=== PATIENT | female | born 1965 | race Caucasian/White ===

== ENCOUNTER 2017-01-26 07:00 | Day surgery (SDC) | payer OTHER ==
[~2017-01-26] VITALS: Ht 172.7 cm; Wt 90.7 kg
--- NOTE | ~2017-01-26 | OR ---
[facility] [address] [place], [place] [address] Draft DATE OF OPERATION: 01/26/2017 SURGEON: Jeremiah Bowen MD PREOPERATIVE DIAGNOSIS: Dysphagia, foreign body sensation in the throat. POSTOPERATIVE DIAGNOSIS: Dysphagia, foreign body sensation in the throat. PROCEDURE: Direct laryngoscopy with biopsy, direct rigid esophagoscopy. ANESTHESIA: General orotracheal, Kayden BLACK. PREOPERATIVE HISTORY: Deonna is a 51-year-old lady with a several month history of right-sided throat discomfort, fullness, and dysphagia. Exam in the office has been negative other than some of sensation of fullness in the right pharyngeal area. She is taken to the operating room for the above-mentioned procedures. OPERATIVE PROCEDURE AND FINDINGS: After informed consent, the patient was taken to the operating room, placed in the supine position, where general orotracheal anesthesia was induced. The patient and procedure were verified. The patient was repositioned. Digital exam showed some nodularity of the right tonsil somewhat also on the left. No other palpable abnormalities in the oral cavity, base of tongue, etc. The Dedo laryngoscope was used to visualize the hypopharynx and larynx. There was a floppy fleshy mucosal lesion on the left vocal cord posteriorly. This was the only abnormality identified on laryngoscopy. This was biopsied with a small cup forceps, sent to pathology in formalin. Basically, the posterior half of the vocal cord mucosa was stripped, minimal bleeding. The long esophagoscope was then passed down to 40 cm from the incisor with no abnormalities identified. No biopsies were taken. The laryngoscope was then placed again for visualized elevation of the right tonsil. Some nodular area on the tonsil was biopsied with a cup forceps. Minimal bleeding in this area. The pharynx was then suctioned with suction clear blood secretions. Hemostasis was verified. The patient was awakened, extubated, and transported to recovery room in good condition. COMPLICATIONS: No complications. BLOOD LOSS: Minimal. PATIENT NAME: CHINMAYDEONNA OPERATIVE REPORT DATE OF : 67 PHYSICIAN: JEREMIAH BOWEN MD REPORT #: [id number] REPORT IS CONFIDENTIAL AND NOT TO BE RELEASED WITHOUT AUTHORIZATION [address] [place], [place] [address] Draft SPECIMEN: 1. Left vocal cord. 2. Right tonsil sent to pathology separately in formalin. DRAINS: No drains. Jeremiah Bowen MD GC/MODL /[id number] PATIENT NAME: MOYDEONNA OPERATIVE REPORT DATE OF : 67 PHYSICIAN: JEREMIAH BOWEN MD REPORT #: [id number] REPORT IS CONFIDENTIAL AND NOT TO BE RELEASED WITHOUT AUTHORIZATION
[~2017-01-26 07:00] MED LIST: ALBUTEROL2.5 MG/3 M INH; AMITIZA24 MCG PO; AUGMENTIN 875-1 EACH PO; BACLOFEN10 MG PO; CELECOXIB200 MG PO; CHANTIX1 MG PO; CLONAZEPAM1 MG PO; DIAZEPAM5 MG PO; DULOXETINE HCL60 MG PO; FOLIC ACID1 MG PO; GABAPENTIN100 MG PO; IBUPROFEN600 MG PO; LORAZEPAM1 MG PO; MELOXICAM15 MG PO; METHOTREXA25 MG/1 ML INJ; METHOTREXATE2.5 MG PO; NORCO 5-325 TA1 EACH PO; NUCYNTA50 MG PO; OMEPRAZOLE20 MG PO; ONDANSETRON HCL4 MG PO; OXYCODONE HCL5 MG PO; PREDNISONE10 MG PO; PREDNISONE20 MG PO; SPIRIVA18 MCG INH; TRAMADOL HCL50 MG PO; TRAZODONE HCL100 MG PO; TRAZODONE HCL50 MG PO; VENTOLIN HFA18 GM INH; [UNRECOGNIZED DRUG - REMARK] IM
--- NOTE | 2017-01-26 10:27 | NUR ---
PT RETURNED FROM PACU. PT TOLERATING PO FOOD AND FLUID. PT DENIES PAIN AND NAUSEA. FAMILY AT BEDSIDE. BED RAILS UP. WARM AIR ON. CALL LIGHT WITHIN REACH
--- NOTE | 2017-01-26 11:35 | NUR ---
PT AMBULATING WITHOUT ASSISTANCE. PT TOLERATING PO FOOD AND FLUID AND VODING WITHOUT ISSUE. PT DRESSES SELF. DISCHARGE INSTRUCTINOS REVIEWED WITH PT AND SISTER. PT AND SISTER VERBALIZE UNDERSTANDING OF INSTRUCTIONS.
--- NOTE | 2017-01-27 07:17 | NUR ---
PT IN RM WITH CAREGIVER, SEEMED TO BE WAITING FOR DR MCFARLANE. PT REQUESTED PRAYER, WILL FOLLW NEEDED
== END 2017-01-26 11:35 | disposition home or self-care (01) ==
LOC: OPS 07:00 → DS 07:00 → OPS 08:00 → DS 08:00 → OPS 11:35
PROVIDERS: Otolaryngology
PROC: 0DJ08ZZ Inspection of Upper Intestinal Tract, Via Natural or Artificial Opening Endoscopic (ICD-10-PCS; 2017-01-26)
PROC: 0CBM8ZX Excision of Pharynx, Via Natural or Artificial Opening Endoscopic, Diagnostic (ICD-10-PCS; principal; 2017-01-26 08:00)
PROC: 0CBV8ZX Excision of Left Vocal Cord, Via Natural or Artificial Opening Endoscopic, Diagnostic (ICD-10-PCS; 2017-01-26 08:00)
DX: J38.7 Other diseases of larynx (principal); J03.90 Acute tonsillitis, unspecified; J45.909 Unspecified asthma, uncomplicated; M06.9 Rheumatoid arthritis, unspecified; F41.9 Anxiety disorder, unspecified; F32.9 Major depressive disorder, single episode, unspecified; M79.7 Fibromyalgia; Z85.40 Personal history of malignant neoplasm of unspecified female genital organ; Z88.5 Allergy status to narcotic agent; Z88.4 Allergy status to anesthetic agent; Z79.899 Other long term (current) drug therapy; Z90.710 Acquired absence of both cervix and uterus; Z90.89 Acquired absence of other organs; Z90.49 Acquired absence of other specified parts of digestive tract; Z98.890 Other specified postprocedural states
CPT/HCPCS: 00320; J0330; J1100; J1885; J2250; J2405; J2704; J2765; J3010; J7120

== ENCOUNTER 2017-11-28 13:29 | Emergency (ER) | payer MEDICARE, OTHER ==
[~2017-11-28] VITALS: Ht 172.7 cm; Wt 90.7 kg
--- OUTSIDE RECORDS SUMMARY | ~2017-11-28 | XMS | Clinical Summary ---
Demographics + + + | Address | [address] | | | [place] [address] | + + + | Home Phone | | + + + | Preferred Language | Unknown | + + + | Marital Status | | + + + | Amish Affiliation | Unknown | + + + | Race | Unknown | + + + | Ethnic Group | Unknown | + + + Author + + + | Author | [facility] | | | and [place] | + + + | Organization | [facility] | | | and [place] | + + + | Address | Unknown | + + + | Phone | Unavailable | + + + Support + + +---------+ + | Name | Relationship | Address | Phone | + + +---------+ + | DEONNA MOY | ECON | Unknown | | + + +---------+ + Care Team Providers + +------+ + | Care Price Accuracy Supervisor Name | Role | Phone | + +------+ + PP | Unavailable | + +------+ + Allergies Not on File Current Medications Not on file Active Problems Not on file Social History + +-------+ +--------+------+ | Tobacco Use | Types | Packs/Day | Years | Date | | | | | Used | | + +-------+ +--------+------+ | Never Assessed | | | | | + +-------+ +--------+------+ + + + | Sex Assigned at | Date Recorded | | | | + + + | Not on file | | + + + Plan of Treatment + + + + + | Health Maintenance | Due Date | Last Done | Comments | + + + + + | Vaccine: | | | | | Dtap/Tdap/Td (1 - | 6 | | | | Tdap) | | | | + + + + + | Cervical Cancer | | | | | Screening (Pap) | 7 | | | + + + + + | Vaccine: Influenza | | | | | (#1) | 8 | | | + + + + + Results Not on filefrom Last 3 Months"
--- OUTSIDE RECORDS SUMMARY | ~2017-11-28 | XMS | Encounter Summary ---
Demographics + + + | Address | [address] | | | [place] [address] | + + + | Home Phone | | + + + | Preferred Language | Unknown | + + + | Marital Status | Single | + + + | Yarsani Affiliation | Unknown | + + + | Race | Unknown | + + + | Ethnic Group | Unknown | + + + Author + + + | Author | [facility] | + + + | Organization | [facility] | + + + | Address | Unknown | + + + | Phone | Unavailable | + + + Support + + +---------+ + | Name | Relationship | Address | Phone | + + +---------+ + | Sridevi Phelps | ECON | Unknown | | + + +---------+ + Care Team Providers + +------+ + | Care Design Consultant Name | Role | Phone | + +------+ + | Jaiden García MD | PCP | | + +------+ + Encounter Details +--------+ + + + + | Date | Type | Department | Care Team | Description | +--------+ + + + + | 11/02/ | Documentati | [facility] | Mitzi Griffin, | | | 2018 | on Only | [facility] | [address] | | | | | [address] | [place], [place] | | | | | [place], [place] | [address] | | | | | [address] | | | | | | [phone] | | | +--------+ + + + + Social History + +-------+ +--------+------+ | Tobacco [...] on file | | + + + as of this encounter Progress Notes Stefanie Zapata N - 11/02/2017 11:56 AM PDT[facility] Plan of Treatment Not on fileas of this encounter Visit Diagnoses Not on filein this encounter"
--- OUTSIDE RECORDS SUMMARY | ~2017-11-28 | XMS | Clinical Summary ---
Demographics + + + | Address | [address] | | | [place] [address] | + + + | Home Phone | | + + + | Preferred Language | Unknown | + + + | Marital Status | | + + + | Jew Affiliation | Unknown | + + + | Race | Unknown | + + + | Ethnic Group | Unknown | + + + Author + + + | Author | [facility] | | | and [place] | + + + | Organization | [facility] | | | and [place] | [...] Team Providers + +------+ + | Care Imaging Services Director Name | Role | Phone | + [...]
--- OUTSIDE RECORDS SUMMARY | ~2017-11-28 | XMS | Encounter Summary ---
Demographics + + + | Address | [address] | | | [place] [address] | + + + | Home Phone | | + + + | Preferred Language | Unknown | + + + | Marital Status | Single | + + + | Gnosticism Affiliation | Unknown | + + + | Race | Unknown | + + + | Ethnic Group | Unknown | + + + Author + + + | Author | [facility] | + + + | Organization | [facility] | + + + | Address | Unknown | + + + | Phone | Unavailable | + + + Support + + +---------+ + | Name | Relationship | Address | Phone | + + +---------+ + | Sridevi Phelps | ECON | Unknown | | + + +---------+ + Care Team Providers + +------+ + | Care Counter Sales Representative Name | Role | Phone | + [...] | | [address] | [place], [place] | | | | | [place], [place] | [address] | | | | | [address] | | | | | | [phone] | | | +--------+ + + + [...] - 11/02/2017 11:56 AM PDTNe[facility] Plan of Treatment Not on fileas of this encounter Visit Diagnoses Not on filein this encounter"
--- OUTSIDE RECORDS SUMMARY | ~2017-11-28 | XMS | Clinical Summary ---
Demographics + + + | Address | [address] | | | [place] [address] | + + + | Home Phone | | + + + | Preferred Language | Unknown | + + + | Marital Status | Single | + + + | Sikh Affiliation | Unknown | + + + | Race | Unknown | + + + | Ethnic Group | Unknown | + + + Author + + + | Author | [facility] | + + + | Organization | [facility] | + + + | Address | Unknown | + + + | Phone | Unavailable | + + + Support + + +---------+ + | Name | Relationship | Address | Phone | + + +---------+ + | Sridevi Phelps | ECON | Unknown | | + + +---------+ + Care Team Providers + +------+ + | Care Lanolin Plant Operator Name | Role | Phone | + +------+ + | Jaiden García MD | PP | | + +------+ + Allergies + + + + + + | Active Allergy | Reactions | Severity | Noted | Comments | | | | | Date | | + + + + + + | Bee Venom | Anaphylaxis | High | 11/12/19 | | | | | | 17 | | + + + + + + Current Medications + + +-------+---------+------+------+-------+ | Prescription | Sig. | Disp. | Refills | Star | End | Statu | | | | | | t | Date | s | | | | | | Date | | | + + +-------+---------+------+------+-------+ | baclofen | Take 10 mg by mouth | | | 07/2 | | Activ | | (LIORESAL) 10 MG | daily. | | | 0/20 | | e | | tablet | | | | 17 | | | + + +-------+---------+------+------+-------+ | folic acid | Take 1 mg by mouth | | | 08/0 | | Activ | | (FOLVITE) 1 MG | daily. | | | 2/20 | | e | | tablet | | | | 17 | | | + + +-------+---------+------+------+-------+ | ENBREL SURECLICK | Take 50 mg by mouth | | | 08/2 | | Activ | | 50 MG/ML | daily. | | | 8/20 | | e | | autoinjector | | | | 17 | | | + + +-------+---------+------+------+-------+ | gabapentin | Take 100 mg by mouth | | | 08 | | Activ | | (NEURONTIN) 100 MG | daily. | | | 04/03 | | e | | capsule | | | | 17 | | | + + +-------+---------+------+------+-------+ | omeprazole | Take 20 mg by mouth | | | 08/0 | | Activ | | (PRILOSEC) 20 MG | 2 (two) times daily. | | | 12/02 | | e | | capsule | | | | 17 | | | + + +-------+---------+------+------+-------+ | methotrexate 50 | 50 mg. | | | 09/13 | | Activ | | MG/2ML injection | | | | 07/02 | | e | | | | | | 17 | | | + + +-------+---------+------+------+-------+ | oxyCODONE | Take 5 mg by mouth | | | 08/ | | Activ | | (ROXICODONE) 5 MG | every 6 (six) hours | | | 11/01 | | e | | immediate release | as needed. | | | 17 | | | | tablet | | | | | | | + + +-------+---------+------+------+-------+ | tiotropium | Inhale 18 mcg into | | | | | Activ | | (SPIRIVA) 18 MCG | the lungs daily. | | | | | e | | inhalation capsule | | | | | | | + + +-------+---------+------+------+-------+ | albuterol | Inhale 2 puffs into | | | | | Activ | | (PROVENTIL | the lungs every 4 | | | | | e | | HFA;VENTOLIN HFA) | (four) hours as | | | | | | | 108 (90 Base) | needed for Wheezing. | | | | | | | MCG/ACT inhaler | | | | | | | + + +-------+---------+------+------+-------+ | predniSONE | Take 10 mg by mouth | | | | | Activ | | (DELTASONE) 10 MG | daily with | | | | | e | | tablet | breakfast. | | | | | | + + +-------+---------+------+------+-------+ | ondansetron | Take 4 mg by mouth 3 | | | | | Activ | | (ZOFRAN) 4 MG tablet | (three) times daily | | | | | e | | | as needed for | | | | | | | | Nausea. | | | | | | + + +-------+---------+------+------+-------+ | lubiprostone | Take 24 mcg by mouth | | | | | Activ | | (AMITIZA) 24 MCG | 2 (two) times daily | | | | | e | | capsule | with meals. | | | | | | + + +-------+---------+------+------+-------+ | clonazePAM | Take 0.5 mg by mouth | | | | | Activ | | (KLONOPIN) 0.5 MG | 2 (two) times daily | | | | | e | | tablet | as needed for | | | | | | | | Anxiety. | | | | | | + + +-------+---------+------+------+-------+ | tapentadol | Take by mouth every | | | | | Activ | | (NUCYNTA) 50 MG | 4 (four) hours as | | | | | e | | tablet | needed for Pain. | | | | | | + + +-------+---------+------+------+-------+ | ropinirole | Take 2 mg by mouth | | | | | Activ | | (REQUIP) 2 MG tablet | every morning. | | | | | e | + + +-------+---------+------+------+-------+ Active Problems Not on file Encounters +--------+ + + + + | Date | Type | Specialty | Care Team | Description | +--------+ + + + + | 11/02/ | Documentati | | Mitzi Griffin, | | | 2018 | on Only | | MD | | +--------+ + + + + from Last 3 Months Social History + +-------+ +--------+------+ | Tobacco [...] on file | | + + + Last Filed Vital Signs + + + + | Vital Sign | Reading | Time Taken | + + + + | Blood Pressure | 115/72 | 11/11/2016 1:50 PM PDT | + + + + | Pulse | 64 | 11/11/2016 1:50 PM PDT | + + + + | Temperature | - | - | + + + + | Respiratory Rate | - | - | + + + + | Oxygen Saturation | 97% | 11/11/2016 1:50 PM PDT | + + + + | Inhaled Oxygen | - | - | | Concentration | | | + + + + | Weight | 93.5 kg (206 lb 3.2 | 11/11/2016 1:50 PM PDT | | | oz) | | + + + + | Height | 172.7 cm (5' 8") | 11/11/2016 1:50 PM PDT | + + + + | Body Mass Index | 31.35 | 11/11/2016 1:50 PM PDT | + + + + Plan of Treatment + [...] | + + + + + | Breast Cancer | | | | | Screening | 7 | | | | (Mammogram) | | | | + + + + + | Colon Cancer | | | | | Screening | 7 | | | | (Colonoscopy) | | | | + + + + + | Vaccine: Influenza | | | | | (#1) | 8 | | | + + + + + Results Not on filefrom Last 3 Months Insurance + +--------+ +------+-------+ + | Payer | Benefi | Subscriber | Type | Phone | Address | | | t Plan | ID | | | | | | / | | | | | | | Group | | | | | + +--------+ +------+-------+ + | MEDICAID | [employer] | [id number] | | | [address] | | | [place] | | | | [place] | | | [place] | | | | [phone] | | | HAND POLISHER | | | | | + +--------+ +------+-------+ + + +--------+ +--------+ + + | Guarantor Name | Accoun | Relation to | Date | Phone | Billing Address | | | t Type | Patient | of | | | | | | | | | | + +--------+ +--------+ + + | DEONNA MOY | Person | Self | [birth year] | Work: | | | | [employer] | | 1965 | [phone]- | [place] [address] | | | [place] | | | [address] Home: | | | | | | | | | | | | | | [phone] | | | | | | [phone] | | + +--------+ +--------+ + +
--- OUTSIDE RECORDS SUMMARY | ~2017-11-28 | XMS | Clinical Summary ---
Demographics + + + | Address | [address] | | | [place] [address] | + + + | Home Phone | | + + + | Preferred Language | Unknown | + + + | Marital Status | Single | + + + | Denominational Affiliation | Unknown | + + + | Race | Unknown | + + + | Ethnic Group | Unknown | + + + Author + + + | Author | [facility] | + + + | Organization | [facility] | + + + | Address | Unknown | + + + | Phone | Unavailable | + + + Support + + +---------+ + | Name | Relationship | Address | Phone | + + +---------+ + | Sridevi Phelps | ECON | Unknown | | + + +---------+ + Care Team Providers + +------+ + | Care Automatic Dry Starch Operator Name | Role | Phone | [...] +------+-------+ + | MEDICAID | [employer] | [id number] | | | [address] | | | N | | | | [place] | | | [place] | | | | [phone] | | | COMMUNITY HEALTH WORKER | | | | | + +--------+ [...] | | [employer] | | 1965 | [phone]- | [place] [address] | | | [place] | | | [address] Home: | | | | | | | | | | | | | | [phone] | | | | | | | [phone] | | + +--------+ +--------+ + +
[2017-11-28] MEDS ORDERED: RECLAST 55 MG/100 M IV (13:42)
[2017-11-28] MEDS ORDERED: PREDNISONE20 MG PO (15:30)
== END 2017-11-28 15:45 | disposition home or self-care (01) ==
LOC: ED 13:29
DX: T63.441A Toxic effect of venom of bees, accidental (unintentional), initial encounter (principal); F17.200 Nicotine dependence, unspecified, uncomplicated; Z88.8 Allergy status to other drugs, medicaments and biological substances; Z79.899 Other long term (current) drug therapy
CPT/HCPCS: 96374; 99283; J2930; Q0163

== ENCOUNTER 2020-04-05 08:06 | Emergency (ER) | payer MEDICARE, OTHER ==
[~2020-04-05] VITALS: Ht 172.7 cm; Wt 85.3 kg
[~2020-04-05 08:06] MED LIST changes: +RECLAST 55 MG/100 M IV
[2020-04-05] MEDS ORDERED: SPIRIVA18 MCG INH (08:21)
[2020-04-05] MEDS ORDERED: DIVALPROEX SOD500 MG PO (08:22)
[2020-04-05] MEDS ORDERED: CELECOXIB200 MG PO (08:23)
[2020-04-05] MEDS ORDERED: SUCRALFATE1 GM PO (08:24)
[2020-04-05] MEDS ORDERED: MONTELUKAST SOD10 MG PO (08:25)
[2020-04-05] MEDS ORDERED: LINZESS145 MCG PO (08:26)
[2020-04-05] MEDS ORDERED: HUMIRA PEN40 MG/0.4 SQ (08:27)
[2020-04-05] MEDS ORDERED: ALENDRONATE SOD70 MG PO (08:28)
--- NOTE | 2020-04-06 13:34 | EKG ---
[facility] [address] [facility] [address] [place], [place] [address] Signed Normal sinus rhythm Normal ECG No previous ECGs available Confirmed by NATALIIA GARCIA MD ([id number]) on 04/06/2020 1:34:14 PM Electronically Signed By: NATALIIA GARCIA MD 04/06/20 1334 PATIENT NAME: JOSUE MOY Electrocardiogram DATE OF : 67 PHYSICIAN: NATALIIA GARCIA MD REPORT #: [id number] REPORT IS CONFIDENTIAL AND NOT TO BE RELEASED WITHOUT AUTHORIZATION
== END 2020-04-05 10:58 | disposition home or self-care (01) ==
LOC: ED 08:06
DX: R00.2 Palpitations (principal); J44.9 Chronic obstructive pulmonary disease, unspecified; F17.200 Nicotine dependence, unspecified, uncomplicated; Z88.8 Allergy status to other drugs, medicaments and biological substances; Z79.899 Other long term (current) drug therapy
CPT/HCPCS: 0297T; 0298T; 71046; 80053; 83735; 84443; 84484; 85025; 93005; 93010; 99285-25

== ENCOUNTER 2022-11-26 18:58 | Emergency (ER) | payer OTHER, MEDICARE ==
[~2022-11-26] VITALS: Ht 172.7 cm; Wt 104.8 kg
[~2022-11-26 18:58] MED LIST changes: +ALENDRONATE SOD70 MG PO; +DIVALPROEX SOD500 MG PO; +HUMIRA PEN40 MG/0.4 SQ; +LINZESS145 MCG PO; +MONTELUKAST SOD10 MG PO; +MOTRIN IB200 MG PO; +NICOTINE1 EAC2 TD; +PERCOCET 7.5-31 EACH PO; +SUCRALFATE1 GM PO; +TYLENOL EXTRA500 M2 PO
[2022-11-26 21:05] VITALS: BP 117/69
== END 2022-11-26 21:05 | disposition home or self-care (01) ==
LOC: ED 18:58
DX: S93.402A Sprain of unspecified ligament of left ankle, initial encounter (principal); S80.02XA Contusion of left knee, initial encounter; S80.12XA Contusion of left lower leg, initial encounter; W01.0XXA Fall on same level from slipping, tripping and stumbling without subsequent striking against object, initial encounter; F17.200 Nicotine dependence, unspecified, uncomplicated; Z88.5 Allergy status to narcotic agent; Z88.8 Allergy status to other drugs, medicaments and biological substances; Z79.1 Long term (current) use of non-steroidal anti-inflammatories (NSAID); Z79.899 Other long term (current) drug therapy
CPT/HCPCS: 73560; 73590; 73630; 99283-25; A9270

== ENCOUNTER 2024-01-31 12:46 | Emergency (ER) | payer MEDICARE, OTHER ==
[~2024-01-31] VITALS: Ht 172.7 cm; Wt 84.0 kg
[~2024-01-31 12:46] MED LIST changes: +ACTEMRA AC162 MG/0.9 SQ; +ATORVASTATIN CA80 MG PO
[2024-01-31] MEDS ORDERED: KETOROLAC TROMETHAMINE 30 MG/ML VIAL IV ONE (13:15)
[2024-01-31] MEDS ORDERED: diazePAM 10 MG/2 ML SYR IV ONE (13:15)
[2024-01-31] MEDS ORDERED: ondansetron HCL 4 MG/2 ML VIAL IV ONE (13:15)
[2024-01-31] MEDS ORDERED: SODIUM CHLORIDE 0.9% 1,000 ML IV ONE (13:15)
[2024-01-31] MEDS ORDERED: methylPREDNISolone SOD SUCC 125 MG/2 ML VIAL IV ONE (13:15)
[2024-01-31 13:22] LABS: BASOPHILS 0.8 % (0-2); EOSINOPHILS 1.2 % (0-6); HEMATOCRIT 39.9 % (35.0-50.0); HEMOGLOBIN 13.7 g/dL (12.0-18.0); LYMPHOCYTES 30.8 % (24-44); MCH 33.8 (27-36); MCHC 34.4 g/dl (30-36); MCV 98.2 fl (81-99); MONOCYTES 12.2 % (0-12); PLATELET COUNT 184 K/uL (140-440); RBC 4.06 M/ul (4.3-5.7); RDW 13.9 (10.5-15.0)
[2024-01-31 13:41] LABS: ALBUMIN 4.1 g/dL (3.4-5.0); ALBUMIN/GLOBULIN RATIO 1.28 (1.1-2.4); BILIRUBIN, TOTAL 0.7 ng/dL (0.2-1.0); BUN/CREATININE RATIO 21.25 (6.0-28.6); CALCIUM 9.6 mg/dL (8.5-10.1); CREATININE, SERUM 0.8 mg/dL (0.55-1.02); PROTEIN, TOTAL 7.3 g/dL (6.4-8.2)
[2024-01-31 14:49] LABS: BILIRUBIN, URINE NEGATIVE (negative); BLOOD/HGB, URINE NEGATIVE (Negative); KETONE, URINE NEGATIVE (Negative); LEUK ESTERASE, URINE SMALL (negative); NITRITE, URINE NEGATIVE (negative); PH, URINE 5.5 (5-7)
[2024-01-31 14:55] LABS: BACTERIA, URINE 1+ /hpf (negative); CASTS, URINE NONE SEEN \\lpf; COLLECTION TYPE, URINE CLEAN CATCH; CRYSTALS, URINE NONE SEEN (0-1+); EPITHELIAL CELLS, URINE SQUAMOUS 4+ /lpf (0-1+); RED BLOOD CELLS, URINE 0-1 /hpf (0-5); REFLEX CULTURE, URINE No (No)
[2024-01-31] MEDS ORDERED: VALIUM5 MG PO (15:28)
[2024-01-31] MEDS ORDERED: PREDNISONE20 MG PO (15:28)
[2024-01-31] MEDS ORDERED: KETOROLAC TROME10 MG PO (15:28)
[2024-01-31 15:39] VITALS: BP 140/68
== END 2024-01-31 15:39 | disposition home or self-care (01) ==
LOC: ED 12:46
PROVIDERS: Emergency Medicine
DX: S39.92XA Unspecified injury of lower back, initial encounter (principal); M06.9 Rheumatoid arthritis, unspecified; J44.9 Chronic obstructive pulmonary disease, unspecified; M81.0 Age-related osteoporosis without current pathological fracture; F17.200 Nicotine dependence, unspecified, uncomplicated; Z91.041 Radiographic dye allergy status; Z88.4 Allergy status to anesthetic agent; Z88.5 Allergy status to narcotic agent; Z79.899 Other long term (current) drug therapy; X58.XXXA Exposure to other specified factors, initial encounter
CPT/HCPCS: 36415; 72131; 80053; 81001; 85025; 96374; 96375; 99284-25; J1885; J2405; J2919; J3360; J7030

== ENCOUNTER 2024-02-03 14:10 | Emergency (ER) | payer MEDICARE, OTHER ==
[~2024-02-03] VITALS: Ht 172.7 cm; Wt 85.0 kg
[~2024-02-03 14:10] MED LIST changes: +KETOROLAC TROME10 MG PO; +VALIUM5 MG PO
--- OUTSIDE RECORDS SUMMARY | 2024-02-03 14:17 | XMS ---
PreManage Notification: JOSUE MOY Security It Risk And Assurance Manager Events No recent Security Events currently on file CRITERIA MET - [facility] - 2 Visits in 30 Days CARE PROVIDERS Faith Esqueda Quarter Backer/Bass Mechanism Maker 12/14/2023-Current PHONE: [phone] -, [facility]+ Dentist: Cyber Workforce Developer And Manager [facility] PHONE: [phone] -[place]- Dentist: Cyber Workforce Developer And Manager [facility] PHONE: [phone] [facility] Current CARE SYSTEM \F\ [facility] PHONE: [phone] Verenice has no Care Guidelines for this patient. David VISIT COUNT (12 MO.) 4 JUAN Almanzar TOTAL 4 NOTE: Visits indicate total known visits. ED/UCC VISIT TRACKING (12 MO.) 02/03/2024 14:10 [facility] [place] TYPE: Emergency COMPLAINT: - BACK PAIN 01/31/2024 12:46 [facility] [place] TYPE: Emergency COMPLAINT: - BACK PAIN DIAGNOSES: - Age-related osteoporosis without current pathological fracture - Allergy status to anesthetic agent - Allergy status to narcotic agent - Chronic obstructive pulmonary disease, unspecified - Exposure to other specified factors, initial encounter - Low back pain, unspecified - Nicotine dependence, unspecified, uncomplicated - Other residential (current) drug therapy - Radiographic dye allergy status - Rheumatoid arthritis, unspecified - Unspecified injury of lower back, initial encounter 06/08/2023 21:30 [facility] [place] TYPE: Emergency COMPLAINT: - RT FOOT INJURY DIAGNOSES: - Allergy status to narcotic agent - Chronic obstructive pulmonary disease, unspecified - Fall on same level from slipping, tripping and stumbling without subsequent striking against object, initial encounter - Nicotine dependence, unspecified, uncomplicated - Other residential (current) drug therapy - Other nonmedicinal substance allergy status - Pain in right ankle and joints of right foot - Sprain of unspecified ligament of right ankle, initial encounter 04/16/2023 19:07 [facility] [place] TYPE: Emergency COMPLAINT: - TOE INJURY DIAGNOSES: - Allergy status to other drugs, medicaments and biological substances - Chronic obstructive pulmonary disease, unspecified - Displaced fracture of proximal phalanx of left lesser toe(s), initial encounter for closed fracture - Nicotine dependence, unspecified, uncomplicated - Other residential (current) drug therapy - Pain in left toe(s) - Striking against or struck by other objects, initial encounter INPATIENT VISIT TRACKING (12 MO.) No inpatient visits to display in this time frame [email or web address]
[2024-02-03] MEDS ORDERED: TIZANIDINE HCL4 MG PO (14:26)
[2024-02-03 16:07] LABS: BASOPHILS 0.4 % (0-2); EOSINOPHILS 0.1 % (0-6); HEMATOCRIT 37.6 % (35.0-50.0); HEMOGLOBIN 12.7 g/dL (12.0-18.0); LYMPHOCYTES 11.7 % (24-44); MCH 33.9 (27-36); MCHC 33.9 g/dl (30-36); MCV 99.8 fl (81-99); MONOCYTES 1.8 % (0-12); PLATELET COUNT 184 K/uL (140-440); RBC 3.77 M/ul (4.3-5.7); RDW 13.8 (10.5-15.0)
[2024-02-03] MEDS ORDERED: fentaNYL citrate 100 MCG/2 ML VIAL IV PRN (16:15)
[2024-02-03 16:16] LABS: ALBUMIN 3.8 g/dL (3.4-5.0); ALBUMIN/GLOBULIN RATIO 1.27 (1.1-2.4); ANION GAP 12.2 (7-21); BILIRUBIN, TOTAL 0.4 ng/dL (0.2-1.0); BUN/CREATININE RATIO 27.84 (6.0-28.6); CALCIUM 8.8 mg/dL (8.5-10.1); CREATININE, SERUM 0.79 mg/dL (0.55-1.02); POTASSIUM 4.2 mmol/L (3.5-5.1); PROTEIN, TOTAL 6.8 g/dL (6.4-8.2)
[2024-02-03 18:13] VITALS: BP 142/95
== END 2024-02-03 18:14 | disposition short-term general hospital (02) ==
LOC: ED 14:10
PROVIDERS: Emergency Medicine
DX: M54.50 Low back pain, unspecified (principal); R15.9 Full incontinence of feces; F17.200 Nicotine dependence, unspecified, uncomplicated; J44.9 Chronic obstructive pulmonary disease, unspecified; Z91.048 Other nonmedicinal substance allergy status; Z91.09 Other allergy status, other than to drugs and biological substances; Z79.52 Long term (current) use of systemic steroids; Z79.899 Other long term (current) drug therapy
CPT/HCPCS: 36415; 80053; 85025; 96374; 99284-25; J3010